=== PATIENT | female | born 1985 | race Asian ===

== ENCOUNTER → 2020-03-16 08:31 | Outpatient (CLI) | payer OTHER, SELFPAY ==
[2020-03-17 22:16] LABS: COVID19 Sendout Not Detected (Not Detect)
== END ==
PROVIDERS: PCP Family Medicine; Visit Provider Physician Assistant
DX: Z11.59 Encounter for screening for other viral diseases (principal)
CPT/HCPCS: 87635

== ENCOUNTER 2020-03-19 08:25 | Day surgery (SDC) | payer OTHER, SELFPAY ==
[2020-03-19] VITALS (7 sets, daily range): BP systolic 97–126; BP diastolic 57–77; PULSE 53–69; RESP 8–16; TEMP 36–36.7; O2SAT 96–100; BMI 19.3
--- NOTE | 2020-03-19 | PATH_ITS ---
[facility] Accession Number: [id number] . 01 Material submitted: . PART A: small bowel - SMALL BOWEL PART B: gastrointestinal site - GASTRIC BX . 01 Clinical history: . SDC A: R/O SPURE B: R/O H.PYLORI . 02 Diagnosis: A. Small Bowel, Biopsy: Duodenal mucosa with no diagnostic abnormality. Negative for active inflammation, features of sprue, dysplasia, or malignancy. . B. Stomach, Biopsy: Antral mucosa with mild chronic gastritis. Negative for Helicobacter by immunohistochemistry. Negative for intestinal metaplasia. Negative for dysplasia and malignancy. . MRV 03/24/2020 1417 Local . 02 Electronically signed: . Shantel Ventura MD, Pathologist NPI- [id number] . 01 Gross description: . Part A: SMALL BOWEL: Received in formalin are 4 fragment(s) of [place], soft tissue measuring 0.4 x 0.2 x 0.1 cm to 0.2 x 0.2 x 0.2 cm submitted entirely in 1 cassette(s) Part B: GASTRIC BX: Received in formalin are 2 fragment(s) of [place], soft tissue measuring 0.3 x 0.3 x 0.2 cm to 0.3 x 0.2 x 0.2 cm submitted entirely in 1 cassette(s) /QBJ 03/20/2020 0305 Local . 02 Microscopic: . B. An immunohistochemical stain was performed to evaluate for Helicobacter organisms and is negative. The control stain showed appropriate reactivity. . * This test was developed and its performance characteristics determined by [employer]. It has not been cleared or approved by the U.[place]. Food and Drug Administration. The FDA has determined that such clearance or approval is not necessary. This test is used for clinical purposes. It should not be regarded as investigational or for research. . 02 Pathologist provided ICD-10: R10.13 . 02 CPT . 492679, 880399, [id number] Performed at: [address] [facility] [address] [place] [address], [place], [place] [id number] MD Mahesh Becker MD Phone: [phone] Performed at: 02 [facility] [address] [place], [place] [id number] MD Shantel Ventura MD Phone: [phone]
[2020-03-19] MEDS: SODIUM CHLORIDE 0.9% 1,000 ML 70 ML IV (08:45)
[2020-03-19] MEDS: fentaNYL 250 MCG/5 ML INJ IV ×2 (09:20→09:32)
--- NOTE | 2020-03-19 09:22 | PM.HP.1 ---
History of Present Illness History of Present Illness Date Patient Seen: 03/19/20 Time Patient Seen: 09:23 Chief complaint: SDC *$62* Narrative: Patient is a 34 year old female who presetented for EGD. Last seen 09/11/2019 for heartburn, globus and epigastric pain. Denies changes to her symptoms since that time. Patient History Family & Social History Social History: household members spouse Tobacco & Substance use: Smoking Status Never smoker alcohol intake current alcohol intake frequency holiday/special occasion Substance Use Type marijuana Meds Home Medications and Allergies Allergies Allergy/AdvReac Type Severity Reaction Status Date / Time No Known Drug Allergies Allergy Verified 03/19/20 08:43 Review of Systems Review of Systems ROS: Yes All systems reviewed with the patient and are negative except as otherwise documented Exam Vital Signs (past 8 hours): - 03/19/20 09:03 Temperature 97.5 F L Pulse Rate 58 L Respiratory Rate 16 Blood Pressure 126/77 Pulse Oximetry 100 Oxygen Delivery Method Room Air Const General: cooperative, healthy appearing, comfortable, well developed and well groomed Nutritional Appearance: well nourished Orientation: alert and awake HENND Head: normocephalic and atraumatic Resp Effort & Inspection: normal respiratory effort and able to speak in complete sentences Auscultation: clear to auscultation bilaterally Cardio Rate: regular rate Rhythm: regular rhythm Heart Sounds: S1 normal and S2 normal GI Palpation: soft Auscultation: normal bowel sounds Extrem Right lower extremity: no edema Left lower extremity: no edema Assessment & Plan Assessment & Plan narrative: 1. Heartburn 2. Epigastric pain 3. Globus sensation - EGD today, further recommendations to follow.
[2020-03-19] MEDS: MIDAZOLAM 5 MG/5 ML VIAL IV ×3 (09:28→09:32)
--- NOTE | 2020-03-19 09:37 | PM.OP.ENDO ---
Operative Date/Time/Diagnoses Date of procedure: 03/19/20 Procedure Notes Procedure in detail: Surgeon: Chantel Cantu DO Procedure: Esophagogastroduodenoscopy with biopsy Preoperative diagnosis: 1. Heartburn 2. Globus sensation 3. Epigastric pain Postoperative diagnosis: 1. Small hiatal hernia 2. Mild gastritis, antrum. Biopsy to rule out H pylori 3. Rule out celiac sprue, normal-appearing gastric mucosa Medications: Conscious sedation using 5 mg IV of Midazolam and 125 mcg IV of Fentanyl, 4% lidocaine gargle Preanesthesia Assessment An H and P was performed/updated and the Px?s ASA class is 1. The procedure was discussed in detail with the patient. The potential risks and complications including infection, bleeding, missed lesions, perforation, need for surgery in case of perforation, prolonged hospital stay, and were explained. A brief question and answer period was allotted and once all questions were answered, informed consent was obtained. The patient was brought back to the procedure room and placed on standard monitoring. The patient?s vital signs were monitored continuously throughout the entire procedure. Prior to starting, a timeout was performed to confirm the patient?s identity, allergies, medications, and procedure. Procedure in detail The patient was placed in left lateral decubitus position and a bite block was inserted. The tip of the upper endoscope was placed into the mouth and advanced without difficulty under direct visualization into the esophagus. Esophagus: -normal-appearing esophagus Stomach: -small sliding type hiatal hernia -mild antral gastritis, biopsied rule out H pylori Duodenum: -normal-appearing gastric mucosa, biopsied rule out celiac The patient tolerated the procedure well and will be brought back to the recovery area to be discharged once criteria are met. The total physician intraservice time was 9min. Complications There were no complications and estimated blood loss was minimal. Recommendations: Resume previous diet Continue outPx medications Follow up pathology results Office follow up if persistent symptoms An emergency contact number was given to the patient for any complications related to the procedure
== END 2020-03-19 11:03 | disposition home or self-care (01) ==
PROVIDERS: PCP Family Medicine; Referring Provider Family Medicine; Visit Provider Student in an Organized Health Care Education/Training Program
PROC: 0DJ08ZZ Inspection of Upper Intestinal Tract, Via Natural or Artificial Opening Endoscopic (ICD-10-PCS; CPT 43235; principal; 2020-03-19 09:30)
DX: K29.50 Unspecified chronic gastritis without bleeding (principal); K44.9 Diaphragmatic hernia without obstruction or gangrene
CPT/HCPCS: 43239; J2250; J3010